=== PATIENT | male | born 1990 | race American Indian/Alaskan Native ===

== ENCOUNTER 2017-01-08 16:19 | Emergency (ER) | payer BC ==
[2017-01-08 16:20] VITALS: BMI 29.4
[2017-01-08 18:07] VITALS: TEMP 98.8
--- NOTE | 2017-01-08 18:32 | C.PDOC ---
26 y/o male with hx slightly elevated bp at last pmd check up, using lifestyle changes, presents today with elevated bp. pt sts around 2 pm today, he felt pain in his right arm and also in his right hip, and went to school nurse. nurse checked pt's aminah and it was found to be elevated and pt was told to go to a doctor. pt went home then came to ed for evaluation. pt sts pain in right leg decreased after 20 minutes, but still has some pain in right bicepital area. pt denies cp, sob, headache. pt denies weakness to extremities, denies numbness and tinging. pt has no slurred speech. (Comfort Cobb) History/Exam Limitations: no limitations Onset/Duration Of Symptoms: Mins, Hrs (from 2 pm) Current Symptoms Are (Timing): Better Associated Symptoms: denies: Chest Pain, Dyspnea, Blurred Vision, Focal Weakness <Comfort Cobb - Last Filed: 01/08/17 19:23> <Julio García - Last Filed: 01/08/17 23:03> Time Seen by Provider: 01/08/17 17:39 Chief Complaint (Nursing): High Blood Pressure Past Medical History Reviewed: Historical Data, Nursing Documentation, Vital Signs - Medical History PMH: No Chronic Diseases Other Surgeries: metal rods right leg Family History: States: Unknown Family Hx - Social History Hx Tobacco Use: No Hx Alcohol Use: Yes Hx Substance Use: No - Immunization History Hx Tetanus Toxoid Vaccination: No Hx Influenza Vaccination: Yes Hx Pneumococcal Vaccination: No <Comfort Cobb - Last Filed: 01/08/17 19:23> Vital Signs: Last Vital Signs Temp 98.8 F 01/08/17 17:55 Pulse 84 01/08/17 20:16 Resp 18 01/08/17 20:16 BP 145/87 01/08/17 20:16 Pulse Ox 98 01/08/17 20:16 Review Of Systems Constitutional: Negative for: Fever, Chills Cardiovascular: Negative for: Chest Pain, Palpitations Respiratory: Negative for: Cough, Shortness of Breath Gastrointestinal: Negative for: Nausea, Vomiting, Abdominal Pain, Diarrhea Musculoskeletal: Positive for: Arm Pain (right), Leg Pain (right). Negative for : Neck Pain Skin: Negative for: Rash Neurological: Negative for: Weakness, Numbness, Headache <Comfort Cobb - Last Filed: 01/08/17 19:23> Physical Exam - Physical Exam Appears: Non-toxic, No Acute Distress Skin: Normal Color, Warm, Dry Head: Atraumatic, Swelling Eye(s): bilateral: Normal Inspection, PERRL, EOMI Nose: Normal Neck: Normal, Normal ROM Chest: Symmetrical, No Deformity, No Tenderness Cardiovascular: Rhythm Regular, No Murmur Respiratory: Normal Breath Sounds <Comfort Cobb - Last Filed: 01/08/17 19:23> ED Course And Treatment - Laboratory Results Result Diagrams: 01/08/17 18:42 01/08/17 18:42 ECG: Viewed By Me ECG Rhythm: Sinus Rhythm ECG Interpretation: Abnormal O2 Sat by Pulse Oximetry: 97 Pulse Ox Interpretation: Normal <Comfort Cobb - Last Filed: 01/08/17 19:23> - Laboratory Results Result Diagrams: 01/08/17 18:42 01/08/17 18:42 <Julio García - Last Filed: 01/08/17 23:03> NIHSS Stroke Scale - Date/Time Evaluation Performed Date Performed: 01/08/17 Time Performed: 18:20 When Was NIHSS Performed: Baseline - How Severe is the Stoke Level of Consciousness: 0=Alert LOC to Questions: 0=Both comments correct LOC to commands: 0=Obeys both correctly Best Gaze: 0=Normal Visual: 0=No visual loss Facial: 0=Normal Motor Arm - Left: 0=No drift Motor Arm - Right: 0=No drift Motor Leg - Left: 0=No drift Motor Leg - Right: 0=No drift Limb Ataxia: 0=Absent Sensory: 0=Normal Best Language: 0=No aphasia Dysarthia: 0=Normal articulation Extinction & Inattention (Neglect): 0=Normal, no object Score: 0 Severity Of Stroke: 0= No Stroke <Comfort Cobb - Last Filed: 01/08/17 19:23> - How Severe is the Stoke Level of Consciousness: 0=Alert LOC to Questions: 0=Both comments correct LOC to commands: 0=Obeys both correctly Best Gaze: 0=Normal Visual: 0=No visual loss Facial: 0=Normal Motor Arm - Left: 0=No drift Motor Arm - Right: 0=No drift Motor Leg - Left: 0=No drift Motor Leg - Right: 0=No drift Limb Ataxia: 0=Absent Sensory: 0=Normal Best Language: 0=No aphasia Dysarthia: 0=Normal articulation Extinction & Inattention (Neglect): 0=Normal, no object Score: 0 Severity Of Stroke: 0= No Stroke <Julio García - Last Filed: 01/08/17 23:03> rTPA Inclusion/Exclusion - Refusal of Treatment Patient Refused Treatment: Yes - Inclusion Criteria for Altepase Patient is 18 years or Older: Yes The Clinical Diagnosis of Ischemic Stroke That is Causing a Potentially Disabling Neurological Deficit: No Time of Onset is Well Established to be Less Than 270 Minute Before Treatment Would Begin: Yes Risk/Benefit Discussed With Patient/Family Member Present: No - Exclusion Criteria for Altepase Uncontrolled Hypertension at Time of Treatment (Systolic BP above 185 or Diastolic BP above 110 mmHg): No Active Internal Bleeding: No Known Bleeding Diathesis Including but Not Limited to: Platelets Below 100,000/ mm,PTT Above 40 sec After Heparin Use, Current Use of Oral Anitcoagulant With INR Greater Than 1.7 or PT Greater Than 15 secs: No Evidence of an Intracranial Hemorrhage: No Evidence of Major Acute Infarct With Signs Greater Than 1/3 MCA Territory: No Suspicion of Subarachnoid Hemorrhage on Pretreatment Evaluation Even if CT Head Negative For Hemorrhage: No - Warning to TPA With Conditions Following Conditions Weighed Against Anticipated Benefit: Yes Condition: Stroke Serevity Too Mild, Rapid Improvement <Comfort Cobb - Last Filed: 01/08/17 19:23> - Refusal of Treatment Patient Refused Treatment: No - Inclusion Criteria for Altepase Patient is 18 years or Older: No The Clinical Diagnosis of Ischemic Stroke That is Causing a Potentially Disabling Neurological Deficit: No Time of Onset is Well Established to be Less Than 270 Minute Before Treatment Would Begin: No Risk/Benefit Discussed With Patient/Family Member Present: Yes - Exclusion Criteria for Altepase Uncontrolled Hypertension at Time of Treatment (Systolic BP above 185 or Diastolic BP above 110 mmHg): No <Julio García - Last Filed: 01/08/17 23:03> Medical Decision Making <Comfort Cobb - Last Filed: 01/08/17 19:23> <Julio García - Last Filed: 01/08/17 23:03> Medical Decision Making: pt endorsed to me pending rusults of imaging. ct head neg as pervrad. pt on phone, smiling, asking for d/c. neuro intact (Julio García) Disposition - Disposition Disposition Time: 19:22 <Comfort Cobb - Last Filed: 01/08/17 19:23> - Disposition Disposition Time: 20:05 <Julio García - Last Filed: 01/08/17 23:03> - Disposition Disposition: HOME/ ROUTINE Condition: STABLE Additional Instructions: please follow up with your doctor to discuss your b/p. return toe r with worsening symptoms or concerns Instructions: Hypertension (ED), Arm Pain (ED) - Clinical Impression Clinical Impression: Hypertension Physician Patient Turnover Patient Signed Over To: Julio García Handoff Comments: f/u ;labs and head ct. re-eval <Comfort Cobb - Last Filed: 01/08/17 19:23>
[2017-01-08 18:53] LABS: BASO # 0.1 K/uL (0.0-0.2); BASO % 1.2 % (0.0-2.0); EOS # 0.1 K/uL (0.0-0.7); EOS % 2.4 % (0.0-4.0); HEMATOCRIT 40.8 % (35.0-51.0); LYMPH # 2.9 K/uL (1.0-4.3); LYMPH % 47.1 % (20.0-40.0); MEAN CELL VOLUME 89.1 fL (80.0-94.0); MEAN CORPUSCULAR HEMOGLOBIN 29.7 pg (27.0-31.0); MEAN CORPUSCULAR HGB CONC 33.3 g/dL (33.0-37.0); MEAN PLATELET VOLUME 8.2 fL (7.2-11.7); MONO # 0.6 K/uL (0.0-0.8); MONO % 9.7 % (0.0-10.0); NRBC % 0.1 % (0.0-2.0); RED CELL DISTRIBUTION WIDTH 13.6 % (11.5-14.5); WHITE BLOOD COUNT 6.2 K/uL (4.8-10.8)
[2017-01-08 19:05] LABS: CHLORIDE 96 mmol/L (98-107); POTASSIUM 4.5 mmol/L (3.6-5.2); SODIUM 137 mmol/L (132-148)
[2017-01-08 19:07] LABS: GFR AFRICAN-AMERICAN > 60
[2017-01-08 19:08] LABS: ALB/GLOB RATIO 1.3 (1.0-2.1); ALKALINE PHOSPHATASE 75 U/L (38-126); ALT/SGPT 24 U/L (21-72); AST/SGOT 29 U/L (17-59); BILIRUBIN,TOTAL 0.5 mg/dL (0.2-1.3); BLOOD UREA NITROGEN 16 mg/dL (9-20); CALCIUM 9.1 mg/dl (8.6-10.4); CARBON DIOXIDE 25 mmol/L (22-30); GLUCOSE,RANDOM 77 mg/dL (75-110); TOTAL PROTEIN 8.5 g/dL (6.3-8.3)
[2017-01-08 20:18] VITALS: BP 145/87; PULSE 84; RESP 18; O2SAT 98
--- NOTE | 2017-01-09 09:18 | CT ---
PROCEDURE: CT HEAD WITHOUT CONTRAST. HISTORY: right arm pain. elevated bp COMPARISON: None available. TECHNIQUE: Axial computed tomography images were obtained through the head/brain without intravenous contrast. Radiation dose: Total exam DLP = 790.41 MGy-cm. FINDINGS: HEMORRHAGE: No intracranial hemorrhage. BRAIN: No mass effect or edema. No atrophy or chronic microvascular ischemic changes. VENTRICLES: Unremarkable. No hydrocephalus. CALVARIUM: Unremarkable. PARANASAL SINUSES: Unremarkable as visualized. No significant inflammatory changes. MASTOID AIR CELLS: Partial opacification multiple left sided inferior mastoid air cells. OTHER FINDINGS: None. IMPRESSION: No intracranial hemorrhage
--- NOTE | 2017-01-09 20:32 | CARD ---
APPROVED REPORT EKG Measurement Heart [id number] MA [id number] [id number] <Conclusion> Normal sinus rhythm Moderate voltage criteria for LVH, may be normal variant ST elevation, consider early repolarization Abnormal ECG
== END 2017-01-08 20:20 | disposition home or self-care (01) ==
LOC: C.ER 16:19
DX: I10 Essential (primary) hypertension (principal)

== ENCOUNTER 2017-05-17 12:44 | Emergency (ER) | payer BC ==
[2017-05-17 12:44] VITALS: BMI 29.4
--- NOTE | 2017-05-17 15:08 | C.PDOC ---
History Of Present Illness 26 y/o male presents to the ED with complaints of right 2nd toe pain. Pt states he was dancing when he fell and injured his toe. Pt states it looked out of place initially so he pulled it back. Pain has been persistent. Denies fever, weakness, numbness or any other complaints. Time Seen by Provider: 05/17/17 14:04 Chief Complaint (Nursing): Lower Extremity Problem/Injury History Per: Patient History/Exam Limitations: no limitations Onset/Duration Of Symptoms: Hrs Current Symptoms Are (Timing): Still Present Severity: Moderate Recent travel outside of the [place]: No Past Medical History Reviewed: Historical Data, Nursing Documentation, Vital Signs Vital Signs: Last Vital Signs Temp 98.3 F 05/17/17 15:29 Pulse 74 05/17/17 15:29 Resp 18 05/17/17 16:46 BP 112/71 05/17/17 15:29 Pulse Ox 100 05/17/17 16:39 Family History: States: Unknown Family Hx - Social History Hx Tobacco Use: No Hx Alcohol Use: Yes Hx Substance Use: No - Immunization History Hx Tetanus Toxoid Vaccination: No Hx Influenza Vaccination: No Hx Pneumococcal Vaccination: No Review Of Systems Constitutional: Negative for: Fever Musculoskeletal: Positive for: Other (right 2nd toe pain) Neurological: Negative for: Weakness, Numbness Physical Exam - Physical Exam Appears: Non-toxic, No Acute Distress Skin: Warm, Dry, No Rash Head: Atraumatic, Normacephalic Extremity: Normal ROM, Capillary Refill (<2 seconds), No Deformity, Other ( Right 2nd toe swelling and tenderness to right mid phalanx) Neurological/Psych: Oriented x3, Normal Speech, Normal Cognition, Normal Motor, Normal Sensation ED Course And Treatment O2 Sat by Pulse Oximetry: 100 (room air) Pulse Ox Interpretation: Normal - Other Rad XR foot X-Ray: Viewed By Me, Read By Radiologist Interpretation: Accession No. : [id number]. Patient Name / ID : CLAYTON GREEN / [id number]. Exam Date : 05/17/2017 14:12:16 ( Approved ). Study Comment : Sex / Age : M / 26Y. Creator : Nurys Mitchell MD. Dictator : Nurys Mitchell MD. Youth Teacher : Angle Shear Operator : Nurys Mitchell MD. Approver2 : Report Date : 05/17/2017 15:14:45. My Comment : . Right foot 2nd digit radiographs. Comparison: None available. Indication : Injury. Findings: Soft tissue swelling. Subluxation of the 2nd phalanx at the level of the proximal phalanx with middle phalanx deviated medially as compared to proximal phalanx. Small ossific density at this level likely os. Correlate clinically. The remainder the visualized osseous structures appear intact without acute displaced fracture. No evidence of radiopaque foreign body. Impression: Soft tissue swelling. Subluxation of the 2nd phalanx at the level of the proximal phalanx with middle phalanx deviated medially as compared to proximal phalanx. Small ossific density at this level likely os. Progress Note: Plan: XR right foot, motrin. patient found to have fracture and subluxation of the middle phalanx of the 2nd right toe. Patient was seen by Podiatry resident Dr.Lara Zheng who attemted to reduce the sublax without success. case was d/w Podiatry attending who instructed meron tape, ortho show and d/c home. Patient will f/u with for elective surgical treatment. Meron tape and ortho shoe were applied by Dr.Lara Zheng. Disposition - Disposition Referrals: Fela Dudley DPM [Staff Provider] - Disposition: HOME/ ROUTINE Disposition Time: 16:37 Condition: STABLE Additional Instructions: Follow up with Cert Occupational Therapy Asst within 1-2 days. Return to Ed if feel worse. Prescriptions: Ibuprofen [Motrin Tab] 600 mg PO Q8 #30 tab Instructions: Toe Fracture (ED) Forms: [employer] (Bhutanese) - Clinical Impression Clinical Impression: Toe fracture - PA / NOZZLE TENDER / Resident Statement MD/DO has reviewed & agrees with the documentation as recorded. - Scribe Statement The provider has reviewed the documentation as recorded by the Scribe Winston Skyler All medical record entries made by the Johanny were at my direction and personally dictated by me. I have reviewed the chart and agree that the record accurately reflects my personal performance of the history, physical exam, medical decision making, and the department course for this patient. I have also personally directed, reviewed, and agree with the discharge instructions and disposition.
--- NOTE | 2017-05-17 15:16 | RAD ---
Right foot 2nd digit radiographs Comparison: None available Indication: Injury Findings: Soft tissue swelling. Subluxation of the 2nd phalanx at the level of the proximal phalanx with middle phalanx deviated medially as compared to proximal phalanx. Small ossific density at this level likely os. Correlate clinically. The remainder the visualized osseous structures appear intact without acute displaced fracture. No evidence of radiopaque foreign body. Impression: Soft tissue swelling. Subluxation of the 2nd phalanx at the level of the proximal phalanx with middle phalanx deviated medially as compared to proximal phalanx. Small ossific density at this level likely os.
[2017-05-17 15:29] VITALS: BP 112/71; PULSE 74; RESP 18; TEMP 98.3
[2017-05-17] MEDS ORDERED: Lidocaine Hydrochloride 5 ML INJ ONE (15:35)
--- NOTE | 2017-05-17 15:46 | CP.PCM.CON ---
History of Present Illness - History of Present Illness History of Present Illness: 26 y/o male with no known pmhx seen at bedside in the ED for right foot 2nd toe injury. Patient states that he was out dancing last night when he fell backwards and felt a pop in his toe. He states that his toe became dislocated so he popped it back into place. Patient states that the pain is a 10/10 today and very swollen. Patient denies taking any pain medication. He denies any other trauma. Patient denies n/f/c/v/d/sob. Review of Systems - Constitutional Constitutional: As Per HPI Past Patient History - Infectious Disease Hx of Infectious Diseases: None - Tetanus Immunizations Tetanus Immunization: Up to Date - Past Social History Smoking Status: Light Smoker < 10 Cigarettes Daily - PSYCHIATRIC Hx Substance Use: No - SURGICAL HISTORY Hx Surgeries: Yes Hx Orthopedic Surgery: Yes (bilat hip 2003) - ANESTHESIA Hx Anesthesia: Yes Hx Anesthesia Reactions: No Hx Malignant Hyperthermia: No Meds Allergies/Adverse Reactions: Allergies Allergy/AdvReac Type Severity Reaction Status Date / Time iodine Allergy Verified 05/17/17 13:15 SEAFOOD Allergy Uncoded 01/08/17 17:14 Physical Exam - Constitutional Appears: Well, Non-toxic, No Acute Distress - Extremities Exam Additional comments: Vasc: DP /PT 2/4, TG wnl, CFT < 3 sec to all digits neuro: grossly intact derm: localized edema and erythema to right 2nd digit, no open lesions, no acute clinical signs of infection, no hyperkeratotic lesions ortho: pain on palpation of 2nd digit right foot, subluxation of 2nd digit on proximal phalanx - Neurological Exam Neurological exam: Alert, Oriented x3 - Psychiatric Exam Psychiatric exam: Normal Affect, Normal Mood Results - Vital Signs Recent Vital Signs: Last Vital Signs Temp 98.3 F 05/17/17 15:29 Pulse 74 05/17/17 15:29 Resp 18 05/17/17 15:29 BP 112/71 05/17/17 15:29 Pulse Ox 99 05/17/17 15:29 Assessment & Plan - Assessment and Plan (Free Text) Assessment: 26 y/o male seen at bedside in the ED for 2nd digit injury of right foot Plan: patient evaluated and chart reviewed discussed in detail with attending Dr. Dudley labs and vitals reviewed; afebrile X rays of right foot show subluxation of 2nd digit medially on proximal phalanx with fracture fragment of middle phalanx 5CC 1%lidocaine plain injected in a local block type fashion to 2nd digit of right foot manual reduction performed to align toe in anatomic position post reduction films show, toe remains dislocated medially discussed with patient need for surgical intervention to reduce the digit and stabilize the fracture fragment applied meron splint on 2nd and 3rd digit, surgical shoe patient instructed to follow up with Dr. Dudley in her office rx ibuprofen 600mg prn pain
--- NOTE | 2017-05-17 16:22 | RAD ---
Indication: Postreduction Right foot 2nd digit radiographs Comparison: Right 2nd digit foot radiographs performed earlier the same day. Findings: The 2nd digit at the level of the proximal interphalangeal joint remains subluxed. Fracture fragment is evident at this level. Soft tissue swelling. No evidence of radiopaque foreign body. Impression: The 2nd digit at the level of the proximal interphalangeal joint remains subluxed. Fracture fragment is evident at this level. Soft tissue swelling. Findings discussed with MALENA Ortiz on 05/17/17 at 4:17 p.m.
[2017-05-17 16:39] VITALS: O2SAT 100
== END 2017-05-17 16:51 | disposition home or self-care (01) ==
LOC: C.ER 12:44
DX: S92.511A Displaced fracture of proximal phalanx of right lesser toe(s), initial encounter for closed fracture (principal); W18.30XA Fall on same level, unspecified, initial encounter; Y93.41 Activity, dancing